=== PATIENT | male | born 1975 | race Two or more races ===

== ENCOUNTER 2020-04-29 10:26 | Outpatient (CLI) | payer OTHER ==
[~2020-04-29 10:26] MED LIST: ORPH100T PO
== END 2020-04-29 11:04 | disposition home or self-care (01) ==
LOC: NUCLEAR 10:26
PROVIDERS: ATTEND Internal Medicine Cardiovascular Disease
DX: I20.1 Angina pectoris with documented spasm (principal)

== ENCOUNTER 2020-05-06 10:46 | Outpatient (CLI) | payer OTHER | END 2020-05-06 11:01 | disposition home or self-care (01) | LOC: NUCLEAR 10:46 | PROVIDERS: ATTEND Internal Medicine Cardiovascular Disease | DX: I20.1 Angina pectoris with documented spasm (principal) | CPT/HCPCS: 78452; 93017; A9500 ==